=== PATIENT | male | born 1965 | race Caucasian/White ===

== ENCOUNTER 2018-06-11 21:59 | Emergency (ER) | payer OTHER ==
[2018-06-11 22:06] VITALS: BP 154/90; PULSE 105; TEMP 98.2; BMI 33.0
[2018-06-11] MEDS ORDERED: SODIUM CHLORIDE 1,000 ML IV STA (23:30)
--- NOTE | 2018-06-11 23:30 | PDOC ---
History of Present Illness - General Chief Complaint: Pain Stated Complaint: STOMACH PAIN Time Seen by Provider: 06/11/18 23:29 - History of Present Illness Initial Comments: 06/11/18 23:54 patient eloped prior to evaluation Past History - Past Medical History Allergies/Adverse Reactions: Allergies Allergy/AdvReac Type Severity Reaction Status Date / Time No Known Allergies Allergy Verified 06/11/18 22:02 COPD: No HTN: Yes Hypercholesterolemia: Yes - Suicide/Smoking/Psychosocial Hx Smoking History: Never smoked *Physical Exam - Vital Signs Last Vital Signs Temp Pulse Resp BP Pulse Ox 98.2 F 105 H 18 154/90 98 06/11/18 22:03 06/11/18 22:03 06/11/18 22:03 06/11/18 22:03 06/11/18 22:03 Moderate Sedation - Procedure Monitoring Vital Signs: Procedure Monitoring Vital Signs Temperature 98.2 F 06/11/18 22:03 Pulse Rate 105 H 06/11/18 22:03 Respiratory Rate 18 06/11/18 22:03 Blood Pressure 154/90 06/11/18 22:03 O2 Sat by Pulse Oximetry (%) 98 06/11/18 22:03 *DC/Admit/Observation/Transfer Diagnosis at time of Disposition: Abdominal pain - Discharge Dispostion Disposition: ELOPED - Referrals Referrals: Talat Lyons MD [Primary Care Provider] - - Patient Instructions - Post Discharge Activity
== END 2018-06-11 23:49 | disposition left against medical advice (07) ==
LOC: JER 21:59
DX: R10.9 Unspecified abdominal pain (principal)
CPT/HCPCS: 99281-25